=== PATIENT | male | born 1965 | race Hispanic/Latino ===

== ENCOUNTER 2017-08-23 09:52 | Inpatient (IN) | payer SELFPAY ==
[~2017-08-23] VITALS: Ht 172.7 cm; Wt 83.6 kg
[2017-08-23 10:33] LABS: BASOPHILS % (AUTO) 1.3 % (0.0-5.0); EOSINOPHILS % (AUTO) 3.1 % (0.0-8.0); HEMATOCRIT 47.5 % (42-54); LYMPHOCYTES % (AUTO) 30.9 % (21.0-51.0); MEAN CORPUSCULAR HEMOGLOBIN 30.5 pg (27.0-33.0); MEAN CORPUSCULAR HGB CONC 34.5 g/dL (32.0-36.0); MEAN CORPUSCULAR VOLUME 88.4 fL (79-99); MONOCYTES % (AUTO) 10.1 % (3.0-13.0); NEUTROPHILS % (AUTO) 54.6 % (40.0-77.0); PLATELET COUNT (AUTO) 209 K/uL (130-400); RED BLOOD CELL COUNT(AUTO) 5.37 MIL/uL (4.50-6.20); RED CELL DISTRIBUTION WIDTH 13.1 % (11.0-15.5); WHITE BLOOD COUNT (AUTO) 5.7 K/uL (4.8-10.8)
[2017-08-23 10:48] LABS: PARTIAL THROMBOPLASTIN TIME 23.7 SEC (26.3-35.5); PROTHROMBIN TIME 10.5 SEC (9.6-11.6)
[2017-08-23 11:33] LABS: CREATININE 1.2 mg/dL (0.5-1.5); POTASSIUM 4.4 mmol/L (3.5-5.1)
[2017-08-23 11:49] LABS: ALBUMIN 3.5 g/dL (3.5-5.0); BILIRUBIN,TOTAL 0.5 mg/dL (0.2-1.0); CREATINE KINASE MB 1.9 ng/mL (0.5-3.6); TOTAL PROTEIN, SERUM 7.3 g/dL (6.0-8.3)
[2017-08-23] MEDS ORDERED: ASPIRIN 325 MG TABLET ONE (15:19)
[2017-08-23] MEDS ORDERED: HYDRALAZINE HCL 20 MG/ML VIAL ONE (16:05)
[2017-08-23 17:21] VITALS: BP 183/108
[2017-08-23] MEDS: HYDRALAZINE HCL 20 MG/ML VIAL IV SCH ×2 (18:22→23:50)
[2017-08-23 19:54] VITALS: BP 162/89
[2017-08-23] MEDS ORDERED: ONDANSETRON HCL 4 MG/2 ML VIAL IV PRN (21:00)
[2017-08-23] MEDS ORDERED: ACETAMINOPHEN 325 MG TAB PO PRN (21:00)
[2017-08-23] MEDS: LISINOPRIL 10 MG TABLET PO SCH (21:10)
[2017-08-23] MEDS: FAMOTIDINE 20MG TAB 20 MG TAB PO SCH (21:10)
[2017-08-23] MEDS: INSULIN HUMULIN R 100 UNIT/ML 3ML SQ SCH (21:12)
[2017-08-24] VITALS (7 sets, daily range): BP systolic 119–163; BP diastolic 75–95
[2017-08-24 04:36] LABS: HEMATOCRIT 47.3 % (42-54); MEAN CORPUSCULAR HEMOGLOBIN 29.9 pg (27.0-33.0); MEAN CORPUSCULAR HGB CONC 33.8 g/dL (32.0-36.0); MEAN CORPUSCULAR VOLUME 88.4 fL (79-99); PLATELET COUNT (AUTO) 198 K/uL (130-400); RED BLOOD CELL COUNT(AUTO) 5.35 MIL/uL (4.50-6.20); RED CELL DISTRIBUTION WIDTH 13.5 % (11.0-15.5)
[2017-08-24 04:50] LABS: HEMOGLOBIN A1C 8.7 % (4.0-6.0)
[2017-08-24 04:55] LABS: CREATININE 0.9 mg/dL (0.5-1.5); MAGNESIUM 1.9 mg/dL (1.80-2.40); POTASSIUM 3.5 mmol/L (3.5-5.1)
[2017-08-24] MEDS: HYDRALAZINE HCL 20 MG/ML VIAL IV SCH ×4 (05:42→19:42)
[2017-08-24] MEDS: INSULIN HUMULIN R 100 UNIT/ML 3ML SQ SCH ×4 (06:24→21:17)
[2017-08-24] MEDS ORDERED: PANTOPRAZOLE SODIUM 40 MG TABLET.DR PO SCH (09:00)
[2017-08-24] MEDS ORDERED: ASPIRIN 325 MG TABLET PO SCH (09:00)
[2017-08-24] MEDS ORDERED: GADOBENATE DIMEGLUMINE 20 ML IV ONE (10:17)
[2017-08-24] MEDS: HYDROCHLOROTHIAZIDE 25 MG TABLET PO SCH (10:45)
[2017-08-24] MEDS: FAMOTIDINE 20MG TAB 20 MG TAB PO SCH ×2 (10:45→21:15)
[2017-08-24] MEDS: ENOXAPARIN SODIUM 40 MG/0.4 ML SYRINGE SQ SCH (10:47)
[2017-08-24] MEDS: LISINOPRIL 10 MG TABLET PO SCH (10:47)
[2017-08-24] MEDS ORDERED: ASPIRIN 81 MG EC TAB PO SCH (11:12)
[2017-08-24] MEDS ORDERED: CLOPIDOGREL BISULFATE 75 MG TAB PO SCH ×2 (12:30→15:00)
[2017-08-25] MEDS: HYDRALAZINE HCL 20 MG/ML VIAL IV SCH ×3 (00:21→12:12)
[2017-08-25 03:53] VITALS: BP 136/89
[2017-08-25 05:43] VITALS: BP 156/89
[2017-08-25] MEDS: INSULIN HUMULIN R 100 UNIT/ML 3ML SQ SCH ×3 (06:09→16:34)
[2017-08-25 07:00] VITALS: BP 145/83
[2017-08-25] MEDS ORDERED: CLOPIDOGREL BISULFATE 75 MG TAB PO SCH (09:00)
[2017-08-25] MEDS: FAMOTIDINE 20MG TAB 20 MG TAB PO SCH (09:04)
[2017-08-25] MEDS: LISINOPRIL 10 MG TABLET PO SCH (09:04)
[2017-08-25] MEDS: HYDROCHLOROTHIAZIDE 25 MG TABLET PO SCH (09:04)
[2017-08-25] MEDS: ENOXAPARIN SODIUM 40 MG/0.4 ML SYRINGE SQ SCH (09:05)
[2017-08-25 11:00] VITALS: BP 146/89
[2017-08-25] MEDS ORDERED: METF500T6 PO (14:42)
[2017-08-25] MEDS ORDERED: HYDR25TA PO (14:42)
[2017-08-25] MEDS ORDERED: ATOR10 PO (14:42)
[2017-08-25] MEDS ORDERED: LISI10TA7 PO (14:42)
[2017-08-25] MEDS ORDERED: AEC81 PO (14:42)
[2017-08-25] MEDS ORDERED: CLOP75TA14 PO (14:42)
[2017-08-25 16:00] VITALS: BP 156/88
== END 2017-08-25 18:55 | disposition home or self-care (01) | DRG 69 ==
LOC: EDH 09:52 → EDHIP 09:53 → 2AH 17:20
PROVIDERS: ADMIT Family Medicine; ATTEND Family Medicine
DX: G45.9 Transient cerebral ischemic attack, unspecified (principal); E11.51 Type 2 diabetes mellitus with diabetic peripheral angiopathy without gangrene; G93.89 Other specified disorders of brain; I16.1 Hypertensive emergency; E11.65 Type 2 diabetes mellitus with hyperglycemia; E78.5 Hyperlipidemia, unspecified; I10 Essential (primary) hypertension; M54.30 Sciatica, unspecified side; Z79.82 Long term (current) use of aspirin; Z86.73 Personal history of transient ischemic attack (TIA), and cerebral infarction without residual deficits; Z82.3 Family history of stroke; Z82.49 Family history of ischemic heart disease and other diseases of the circulatory system
CPT/HCPCS: 36415; 70450; 70544; 70553; 71045; 80048; 80053; 80061; 82550; 82553; 82948; 83036; 83735; 84484; 85025; 85027; 85610; 85730; 93005; 93306; 93880; A9577; J0360; J1650; J1815

== ENCOUNTER 2018-03-31 07:48 | Observation (INO) | payer OTHER ==
[~2018-03-31] VITALS: Ht 172.7 cm; Wt 78.1 kg
[~2018-03-31 07:48] MED LIST: AEC81 PO; ATOR10 PO; CLOP75TA14 PO; HYDR25TA PO; LISI10TA7 PO; METF-444 PO
[2018-03-31 08:17] LABS: BASOPHILS % (AUTO) 0.9 % (0.0-5.0); EOSINOPHILS % (AUTO) 0.2 % (0.0-8.0); HEMATOCRIT 50.4 % (42-54); LYMPHOCYTES % (AUTO) 14.9 % (21.0-51.0); MEAN CORPUSCULAR HEMOGLOBIN 29.6 pg (27.0-33.0); MEAN CORPUSCULAR VOLUME 89.6 fL (79-99); MONOCYTES % (AUTO) 4.3 % (3.0-13.0); NEUTROPHILS % (AUTO) 79.7 % (40.0-77.0); PLATELET COUNT (AUTO) 229 K/uL (130-400); RED BLOOD CELL COUNT(AUTO) 5.62 MIL/uL (4.50-6.20); RED CELL DISTRIBUTION WIDTH 13.2 % (11.0-15.5); WHITE BLOOD COUNT (AUTO) 9.6 K/uL (4.8-10.8)
[2018-03-31 08:19] LABS: CARBON DIOXIDE 29 mmol/L (21-32); CHLORIDE 100 mmol/L (101-111); GLOMERULAR FILTR. RATE CALC 83 mL/min (>60); GLUCOSE,RANDOM 231 mg/dL (70-105); POTASSIUM 3.8 mmol/L (3.5-5.1); SODIUM SERUM 136 mmol/L (136-145); UREA NITROGEN, BLOOD 12 mg/dL (7-18)
[2018-03-31 08:24] LABS: ALANINE AMINOTRANSFERASE 25 U/L (12-78); ALBUMIN 4.1 g/dL (3.5-5.0); ALCOHOL, BLOOD < 3 mg/dL (0-10); ASPARTATE AMINOTRANSFERASE 18 U/L (10-37); BILIRUBIN,TOTAL 0.4 mg/dL (0.2-1.0); CREATINE KINASE, TOTAL 84 U/L (21-232); TOTAL PROTEIN, SERUM 8.5 g/dL (6.0-8.3)
[2018-03-31] MEDS ORDERED: ONDANSETRON HCL 4 MG/2 ML VIAL IV PRN (09:45)
[2018-03-31] MEDS ORDERED: LACTULOSE 20 GM/30 ML UDCUP PO PRN (09:45)
[2018-03-31] MEDS ORDERED: ACETAMINOPHEN 325 MG TAB PO PRN (09:45)
[2018-03-31 10:28] LABS: HEMOGLOBIN A1C 6.9 % (4.0-6.0)
[2018-03-31 12:00] LABS: APPEARANCE,URINE Clear (CLEAR); BILIRUBIN,URINE Negative (NEGATIVE); COLOR,URINE Yellow (YELLOW); GLUCOSE, URINE (UA) >=1000 mg/dL (NEGATIVE); KETONES,URINE Trace mg/dL (NEGATIVE); LEUKOCYTE ESTERASE ,URINE Negative (NEGATIVE); NITRATE,URINE Negative (NEGATIVE); OCCULT BLOOD,URINE Small (NEGATIVE); PH,URINE 7.5 (5.0-8.0); PROTEIN,URINE POS 1+ (NEGATIVE)
[2018-03-31 12:08] LABS: AMPHET/METH SCREEN,URINE NEGATIVE (NEGATIVE); BARBITURATE SCREEN, URINE NEGATIVE (NEGATIVE); BENZODIAZEPINES SCREEN,URINE NEGATIVE (NEGATIVE); CANNABINOID SCREEN,URINE NEGATIVE (NEGATIVE); COCAINE SCREEN,URINE NEGATIVE (NEGATIVE); OPIATE SCREEN,URINE NEGATIVE (NEGATIVE); PHENCYCLIDINE SCREEN,URINE NEGATIVE (NEGATIVE)
[2018-03-31 12:11] LABS: BACTERIA,URINE Rare /HPF (None Seen); RBC,URINE None Seen /HPF (0-1); SQUAMOUS EPITHELIAL CELL,UR Rare /HPF (0-2); WBC,URINE 0-1 /HPF (0-1)
[2018-03-31] MEDS ORDERED: SODIUM CHLORIDE 0.9% 1000ML 1,000 ML IV ONE (12:36)
[2018-03-31] MEDS: SODIUM CHLORIDE 0.9% 1000ML 1,000 ML IV SCH (19:33)
[2018-03-31] MEDS: ATORVASTATIN CALCIUM 20 MG TABLET PO SCH (21:00)
[2018-03-31] MEDS ORDERED: LOSARTAN 50 MG TABLET ONE (22:18)
[2018-03-31] MEDS ORDERED: HYDROCHLOROTHIAZIDE 25 MG TABLET ONE (22:18)
[2018-03-31] MEDS ORDERED: LORAZEPAM 2 MG/ML 1 ML VIAL IVP PRN (22:30)
[2018-03-31] MEDS ORDERED: CHLORDIAZEPOXIDE HCL 25 MG CAP PO SCH (22:30)
[2018-03-31 23:05] VITALS: BP 170/93
[2018-04-01 00:05] VITALS: BP 162/110
[2018-04-01] MEDS ORDERED: HYDRALAZINE HCL 20 MG/ML VIAL IV PRN (00:15)
[2018-04-01] MEDS: ATORVASTATIN CALCIUM 20 MG TABLET PO SCH (02:12)
[2018-04-01 04:14] VITALS: BP 144/90
[2018-04-01] MEDS: SODIUM CHLORIDE 0.9% 1000ML 1,000 ML IV SCH ×2 (05:59→15:33)
[2018-04-01] MEDS: CHLORDIAZEPOXIDE HCL 25 MG CAP PO SCH ×2 (06:48→14:24)
[2018-04-01 07:54] VITALS: BP 155/94
[2018-04-01] MEDS ORDERED: ENOXAPARIN SODIUM 40 MG/0.4 ML SYRINGE SQ SCH (09:00)
[2018-04-01] MEDS ORDERED: THIAMINE HCL 100 MG TABLET PO SCH (09:00)
[2018-04-01] MEDS ORDERED: CLOPIDOGREL BISULFATE 75 MG TAB PO SCH (09:00)
[2018-04-01] MEDS ORDERED: LABETALOL HCL 100 MG TABLET PO SCH ×2 (09:00→21:00)
[2018-04-01] MEDS ORDERED: PANTOPRAZOLE 40 MG/VIAL IVP SCH (09:00)
[2018-04-01] MEDS ORDERED: LISINOPRIL 10 MG TABLET PO SCH (09:00)
[2018-04-01] MEDS ORDERED: MULTIVITAMIN TABLET PO SCH (09:00)
[2018-04-01] MEDS ORDERED: FOLIC ACID 1 MG TABLET PO SCH (09:00)
[2018-04-01 12:11] VITALS: BP 155/102
[2018-04-01 14:07] VITALS: BP 143/86
[2018-04-01 16:00] VITALS: BP 152/90
[2018-04-01] MEDS ORDERED: LABETALOL HCL 200 MG TABLET ONE (18:30)
[2018-04-01 18:36] LABS: HEMATOCRIT 43.9 % (42-54); MEAN CORPUSCULAR HEMOGLOBIN 30.5 pg (27.0-33.0); MEAN CORPUSCULAR HGB CONC 33.8 g/dL (32.0-36.0); MEAN CORPUSCULAR VOLUME 90.3 fL (79-99); NUCLEATED RED BLOOD CELLS 0.1 % (0.0-0.19); PLATELET COUNT (AUTO) 231 K/uL (130-400); RED BLOOD CELL COUNT(AUTO) 4.87 MIL/uL (4.50-6.20); RED CELL DISTRIBUTION WIDTH 13.5 % (11.0-15.5); WHITE BLOOD COUNT (AUTO) 6.7 K/uL (4.8-10.8)
[2018-04-01] MEDS ORDERED: ATOR20TA65 PO (18:39)
[2018-04-01] MEDS ORDERED: LABE100T5 PO (18:39)
[2018-04-01] MEDS ORDERED: CLOP75TA14 PO (18:39)
[2018-04-01 18:49] LABS: CREATININE 1.1 mg/dL (0.5-1.5); POTASSIUM 3.7 mmol/L (3.5-5.1)
[2018-04-01 18:53] LABS: ALBUMIN 3.2 g/dL (3.5-5.0); BILIRUBIN,TOTAL 0.4 mg/dL (0.2-1.0)
[2018-04-01 19:42] LABS: B-TYPE NATRIURETIC PEPTIDE 32 pg/mL (0-100)
== END 2018-04-01 19:34 | disposition home or self-care (01) ==
LOC: EDH 07:48 → EDHIP 07:49 → 2DH 23:03
PROVIDERS: ADMIT Internal Medicine; ATTEND Internal Medicine
DX: I63.9 Cerebral infarction, unspecified (principal); I16.1 Hypertensive emergency; I10 Essential (primary) hypertension; E11.9 Type 2 diabetes mellitus without complications; I25.10 Atherosclerotic heart disease of native coronary artery without angina pectoris; E78.2 Mixed hyperlipidemia; F10.20 Alcohol dependence, uncomplicated; Z91.14 Patient's other noncompliance with medication regimen; Z91.19 Patient's noncompliance with other medical treatment and regimen
CPT/HCPCS: 36415 ×2; 70450; 70551; 71045; 74230; 80053 ×2; 80305; 81001; 82550; 82948; 83036; 83880; 84484; 85025; 85027; 92610; 92611; 93005; 96361; 96372; 96374; 96375; 97116; 97161; 99285; A4218; C9113; G0378 ×36; G0480; G8978; G8979; G8980; G8981; G8982; G8983; J0360; J1650; J7030 ×2

== ENCOUNTER 2018-12-29 12:29 | Inpatient (IN) | payer OTHER ==
[~2018-12-29] VITALS: Ht 172.7 cm; Wt 61.2 kg
[~2018-12-29 12:29] MED LIST changes: -ATOR10 PO; +ATOR20TA65 PO; -HYDR25TA PO; +LABE100T5 PO; -LISI10TA7 PO; -METF-444 PO
[2018-12-29] MEDS ORDERED: SODIUM CHLORIDE 0.9% 1000ML 1,000 ML IV ONE ×3 (13:04→18:26)
[2018-12-29 13:15] LABS: EOSINOPHILS % (AUTO) 1.1 % (0.0-8.0); HEMATOCRIT 44.6 % (42-54); LYMPHOCYTES % (AUTO) 20.7 % (21.0-51.0); MEAN CORPUSCULAR HEMOGLOBIN 30.1 pg (27.0-33.0); MEAN CORPUSCULAR HGB CONC 33.8 g/dL (32.0-36.0); MEAN CORPUSCULAR VOLUME 89.2 fL (79-99); MONOCYTES % (AUTO) 6.5 % (3.0-13.0); NEUTROPHILS % (AUTO) 70.7 % (40.0-77.0); PLATELET COUNT (AUTO) 291 K/uL (130-400); RED CELL DISTRIBUTION WIDTH 13.1 % (11.0-15.5); WHITE BLOOD COUNT (AUTO) 9.5 K/uL (4.8-10.8)
[2018-12-29 13:25] LABS: CREATININE 2.6 mg/dL (0.5-1.5); POTASSIUM 4.6 mmol/L (3.5-5.1)
[2018-12-29 13:31] LABS: ALBUMIN 4.3 g/dL (3.5-5.0); BILIRUBIN,TOTAL 0.7 mg/dL (0.2-1.0); TOTAL PROTEIN, SERUM 8.3 g/dL (6.0-8.3)
[2018-12-29] MEDS ORDERED: ACETAMINOPHEN 325 MG TAB PO PRN ×2 (14:45)
[2018-12-29] MEDS ORDERED: HYDRALAZINE HCL 20 MG/ML VIAL IV PRN (14:45)
[2018-12-29] MEDS ORDERED: ONDANSETRON HCL 4 MG/2 ML VIAL IV PRN (14:45)
[2018-12-29 15:23] LABS: HEMOGLOBIN A1C 8.1 % (4.0-6.0)
[2018-12-29] MEDS ORDERED: ONDANSETRON HCL 4 MG/2 ML VIAL ONE (16:56)
[2018-12-29 18:12] LABS: APPEARANCE,URINE Clear (CLEAR); BILIRUBIN,URINE Negative (NEGATIVE); COLOR,URINE Yellow (YELLOW); GLUCOSE, URINE (UA) >=1000 mg/dL (NEGATIVE); KETONES,URINE 15 mg/dL (NEGATIVE); LEUKOCYTE ESTERASE ,URINE Negative (NEGATIVE); NITRATE,URINE Negative (NEGATIVE); OCCULT BLOOD,URINE Trace (NEGATIVE); PROTEIN,URINE POS 1+ mg/dL (NEGATIVE)
[2018-12-29 18:19] LABS: RBC,URINE 0-1 /HPF (0-1); SQUAMOUS EPITHELIAL CELL,UR Few /HPF (0-2)
[2018-12-29 18:20] LABS: AMPHET/METH SCREEN,URINE NEGATIVE (NEGATIVE); BACTERIA,URINE Rare /HPF (None Seen); BARBITURATE SCREEN, URINE NEGATIVE (NEGATIVE); BENZODIAZEPINES SCREEN,URINE NEGATIVE (NEGATIVE); CANNABINOID SCREEN,URINE NEGATIVE (NEGATIVE); COCAINE SCREEN,URINE NEGATIVE (NEGATIVE); OPIATE SCREEN,URINE NEGATIVE (NEGATIVE); PHENCYCLIDINE SCREEN,URINE NEGATIVE (NEGATIVE); SPERM,URINE Few /HPF (None Seen)
[2018-12-29 19:40] VITALS: BP 149/80
[2018-12-29] MEDS: SODIUM CHLORIDE 0.9% 1000ML 1,000 ML IV SCH (20:45)
[2018-12-29 23:38] VITALS: BP 135/73
[2018-12-30] VITALS (7 sets, daily range): BP systolic 148–180; BP diastolic 79–93
[2018-12-30] MEDS: SODIUM CHLORIDE 0.9% 1000ML 1,000 ML IV SCH (03:57)
--- NOTE | 2018-12-30 11:25 | NUR ---
DCP CM met with pt discussed dc plans. Pt is independent prior to admission, lives at home with spouse. Denies any equipments/services. Pt feels safe to go back home, still drives, spouse able to assist with transportation and needs as necessary. DC plan to home once stable. CM to cont to follow up. Addendum: 12/30/18 at 1127 by LIYAH COLE LVN CM Amended: Links added.
[2018-12-30 12:55] LABS: BASOPHILS % (AUTO) 0.6 % (0.0-5.0); EOSINOPHILS % (AUTO) 2.6 % (0.0-8.0); HEMATOCRIT 38.4 % (42-54); MEAN CORPUSCULAR HEMOGLOBIN 30.6 pg (27.0-33.0); MONOCYTES % (AUTO) 7.8 % (3.0-13.0); PLATELET COUNT (AUTO) 193 K/uL (130-400); RED BLOOD CELL COUNT(AUTO) 4.27 MIL/uL (4.50-6.20); RED CELL DISTRIBUTION WIDTH 13.2 % (11.0-15.5); WHITE BLOOD COUNT (AUTO) 5.5 K/uL (4.8-10.8)
[2018-12-30 13:07] LABS: CREATININE 1.1 mg/dL (0.5-1.5); POTASSIUM 4.2 mmol/L (3.5-5.1)
[2018-12-30] MEDS: ENOXAPARIN SODIUM 40 MG/0.4 ML SYRINGE SQ SCH (13:45)
[2018-12-30] MEDS: FAMOTIDINE/PF 20 MG/2 ML VIAL IV SCH (13:45)
[2018-12-30] MEDS: CLOPIDOGREL BISULFATE 75 MG TAB PO SCH (13:45)
[2018-12-30] MEDS ORDERED: LABE100T5 PO (19:46)
[2018-12-30] MEDS ORDERED: ASPI-555 PO (19:46)
[2018-12-30] MEDS ORDERED: METF-446 PO (19:46)
[2018-12-30] MEDS ORDERED: AMLO10TA7 PO (19:46)
[2018-12-30] MEDS ORDERED: LISI40TA4 PO (19:46)
[2018-12-30] MEDS ORDERED: ATOR40TA69 PO (19:46)
[2018-12-30] MEDS ORDERED: THIA250T9 PO (19:46)
[2018-12-31 03:40] VITALS: BP 162/86
[2018-12-31 04:17] LABS: EOSINOPHILS % (AUTO) 2.4 % (0.0-8.0); HEMATOCRIT 39.3 % (42-54); LYMPHOCYTES % (AUTO) 29.8 % (21.0-51.0); MEAN CORPUSCULAR HEMOGLOBIN 30.5 pg (27.0-33.0); MEAN CORPUSCULAR HGB CONC 34.2 g/dL (32.0-36.0); MEAN CORPUSCULAR VOLUME 89.2 fL (79-99); MONOCYTES % (AUTO) 9.8 % (3.0-13.0); PLATELET COUNT (AUTO) 204 K/uL (130-400); RED BLOOD CELL COUNT(AUTO) 4.41 MIL/uL (4.50-6.20); RED CELL DISTRIBUTION WIDTH 13.3 % (11.0-15.5); WHITE BLOOD COUNT (AUTO) 5.8 K/uL (4.8-10.8)
[2018-12-31 04:46] LABS: CREATININE 0.9 mg/dL (0.5-1.5); POTASSIUM 3.8 mmol/L (3.5-5.1)
[2018-12-31 07:59] VITALS: BP 152/96
[2018-12-31] MEDS: METFORMIN HCL 500 MG TABLET PO SCH ×2 (08:00→16:43)
[2018-12-31] MEDS: ASPIRIN 81MG TAB.CHEW PO SCH (08:55)
[2018-12-31] MEDS: LISINOPRIL 40 MG TABLET PO SCH (08:55)
[2018-12-31] MEDS: AMLODIPINE BESYLATE 5 MG TAB PO SCH (08:55)
[2018-12-31] MEDS: LABETALOL HCL 100 MG TABLET PO SCH ×2 (08:55→19:52)
[2018-12-31] MEDS ORDERED: FAMOTIDINE 20MG TAB 20 MG TAB ONE (08:57)
[2018-12-31] MEDS: THIAMINE HCL 100 MG TABLET PO SCH (09:00)
[2018-12-31] MEDS: CLOPIDOGREL BISULFATE 75 MG TAB PO SCH (09:00)
[2018-12-31] MEDS: FAMOTIDINE/PF 20 MG/2 ML VIAL IV SCH (09:00)
[2018-12-31] MEDS: ENOXAPARIN SODIUM 40 MG/0.4 ML SYRINGE SQ SCH (09:01)
[2018-12-31 10:53] VITALS: BP 138/80
--- NOTE | 2018-12-31 14:45 | NUR ---
2d echo complete, pending cardiology to read. Negative bubble study per verbal report from certified medication technician.
[2018-12-31 15:37] VITALS: BP 144/80
[2018-12-31 19:42] VITALS: BP 152/84
[2018-12-31] MEDS ORDERED: ATORVASTATIN CALCIUM 40 MG TABLET PO SCH (21:00)
[2019-01-01] VITALS: BP 139/93
[2019-01-01 04:00] VITALS: BP 134/85
[2019-01-01 07:42] VITALS: BP 140/85
[2019-01-01] MEDS ORDERED: FAMOTIDINE 20MG TAB 20 MG TAB ONE (08:56)
[2019-01-01] MEDS: AMLODIPINE BESYLATE 5 MG TAB PO SCH (09:00)
[2019-01-01] MEDS: ASPIRIN 81MG TAB.CHEW PO SCH (09:00)
[2019-01-01] MEDS: METFORMIN HCL 500 MG TABLET PO SCH (09:00)
[2019-01-01] MEDS: FAMOTIDINE/PF 20 MG/2 ML VIAL IV SCH (09:00)
[2019-01-01] MEDS: CLOPIDOGREL BISULFATE 75 MG TAB PO SCH (09:00)
[2019-01-01] MEDS: THIAMINE HCL 100 MG TABLET PO SCH (09:01)
[2019-01-01] MEDS: LISINOPRIL 40 MG TABLET PO SCH (09:01)
[2019-01-01] MEDS: LABETALOL HCL 100 MG TABLET PO SCH (09:01)
[2019-01-01] MEDS: ENOXAPARIN SODIUM 40 MG/0.4 ML SYRINGE SQ SCH (09:02)
[2019-01-01 10:53] VITALS: BP 124/70
[2019-01-01] MEDS ORDERED: CLOP75TA14 PO (11:19)
[2019-01-01] MEDS ORDERED: FAMO20TA8 PO (11:22)
--- NOTE | 2019-01-01 13:39 | NUR ---
Discharge instructions provided in the room with emphasis on dx, dehydration prevention, stroke prevention, s/s to monitor for, when to seek emergency care and when to dial 911. Educated pt on importance of blood sugar and blood pressure control for stroke prevention. Instructed pt to monitor and record blood pressure regularly, and report to MD's during follow up visits. Pt is to follow up with PCP at [facility] in 7-10 days, [address] Dr. Nixon in 6 weeks. Unable to schedule appts prior to discharge as offices are closed for the weekend; pt and understand that they need to call the schedule appts. Written rx for Plavix and Pepcid given to pt. Discussed route, frequency, and duration of treatment, as well as side effects and adverse effects. Emphasis om importance of taking medication exactly as prescribed. PIV removed, tip intact. Dressed with sterile 2x2 and band aid after hemostasis. Pt wheeled to front lobby by [facility] staff for transport home via private car. Pt in stable condition. Accompanied by and other family member.
[2019-01-01] MEDS ORDERED: FAMOTIDINE 20MG TAB 20 MG TAB PO SCH (21:00)
== END 2019-01-01 13:39 | disposition home or self-care (01) | DRG 66 ==
LOC: EDH 12:29 → OBSVTOIN 12:30 → EDHIP 12:30 → 4AH 19:05
PROVIDERS: ADMIT Internal Medicine; ATTEND Internal Medicine
DX: I63.9 Cerebral infarction, unspecified (principal); E11.9 Type 2 diabetes mellitus without complications; E78.2 Mixed hyperlipidemia; E86.0 Dehydration; I10 Essential (primary) hypertension; I16.0 Hypertensive urgency; I95.9 Hypotension, unspecified; Z79.82 Long term (current) use of aspirin; Z91.14 Patient's other noncompliance with medication regimen; Z91.19 Patient's noncompliance with other medical treatment and regimen; Z83.3 Family history of diabetes mellitus; Z82.49 Family history of ischemic heart disease and other diseases of the circulatory system
CPT/HCPCS: 36415; 70450; 70551; 71045; 80048; 80053; 80305; 81001; 82140; 82550; 82948; 83036; 84443; 84484; 85025; 92610; 93005; 93306; 93880; G0378; J0360; J1650; J2405; J3490; J7030

== ENCOUNTER 2022-10-26 17:04 | Inpatient (IN) | payer OTHER ==
[~2022-10-26] VITALS: Ht 170.2 cm; Wt 62.1 kg
[~2022-10-26 17:04] MED LIST changes: -AEC81 PO; +AMLO-258 PO; +ASPI-556 PO; -ATOR20TA65 PO; +ATOR40TA69 PO; +CLOP-31 PO; -CLOP75TA14 PO; +FAMO20TA8 PO; -LABE100T5 PO; +LABE100T7 PO; +LISI40TA9 PO; +METF-446 PO; +THIA250T9 PO
[2022-10-26 17:55] LABS: BASOPHILS % (AUTO) 0.4 % (0.0-5.0); HEMATOCRIT 43.7 % (42-54); LYMPHOCYTES % (AUTO) 3.3 % (21.0-51.0); MEAN CORPUSCULAR HEMOGLOBIN 28.9 pg (27.0-33.0); MEAN CORPUSCULAR VOLUME 87.6 fL (79-99); MONOCYTES % (AUTO) 5.8 % (3.0-13.0); NEUTROPHILS % (AUTO) 88.8 % (40.0-77.0); PLATELET COUNT (AUTO) 338 K/uL (130-400); RED BLOOD CELL COUNT(AUTO) 4.99 MIL/uL (4.50-6.20); RED CELL DISTRIBUTION WIDTH 13.4 % (11.0-15.5)
[2022-10-26 17:58] LABS: WHITE BLOOD COUNT (AUTO) 35.4 K/uL (4.8-10.8)
[2022-10-26 18:17] LABS: ALBUMIN 1.9 g/dL (3.5-5.0); CREATININE 1.4 mg/dL (0.5-1.5); POTASSIUM 3.8 mmol/L (3.5-5.1); TOTAL PROTEIN, SERUM 8.1 g/dL (6.0-8.3)
[2022-10-26] MEDS ORDERED: ZOSYN 3.375GM +NS 50ML IVPB ONE (18:30)
[2022-10-26] MEDS ORDERED: ACETAMINOPHEN 500 MG TABLET PO ONE (18:30)
[2022-10-26] MEDS ORDERED: 0.9%NACL 1000ML 2,000 ML IV ONE (18:30)
[2022-10-26 18:36] LABS: INR 1.58 (0.85-1.15); PROTHROMBIN TIME 16.8 SEC (9.6-11.6)
[2022-10-26 18:37] LABS: PARTIAL THROMBOPLASTIN TIME 29.9 SEC (26.3-35.5)
[2022-10-26 19:13] LABS: BAND NEUTROPHILS % (MANUAL) 21 % (0-2); LYMPHOCYTES % (MANUAL) 2 % (22-44); MONOCYTES % (MANUAL) 3 % (2-9); SEGMENTED NEUTROPHILS % 74 % (40-70)
[2022-10-26 19:14] LABS: MAN.DIFF COMMENT-IMPRESSION MANUAL DIFFERENTIAL
[2022-10-26] MEDS ORDERED: ACETAMINOPHEN 325 MG TAB PO PRN ×2 (21:00)
[2022-10-26] MEDS ORDERED: MORPHINE 2 MG SYG IV PRN (21:00)
[2022-10-26] MEDS ORDERED: HYDROCODONE/ACETAMINOPHEN 5/325 MG TAB PO PRN ×2 (21:00)
[2022-10-26] MEDS ORDERED: 0.9%NACL 1000ML 1,000 ML IV SCH (21:00)
[2022-10-26] MEDS ORDERED: FAMOTIDINE 20MG VIAL IV SCH (21:00)
[2022-10-26] MEDS ORDERED: ZOSYN 3.375GM+NS 50ML 50 ML IVPB SCH (21:00)
[2022-10-26] MEDS ORDERED: ONDANSETRON 4MG INJ IV PRN (21:00)
[2022-10-26] MEDS ORDERED: TAMSULOSIN HCL 0.4 MG CAP.ER.24H PO ONE (21:30)
[2022-10-26] MEDS ORDERED: VANCOMYCIN 1G VIAL IVPB ONE (22:00)
[2022-10-26] MEDS: VANCOMYCIN 1G/250ML KIT 250 ML IV ONE ×2 (22:15→23:29)
[2022-10-26] MEDS: CLINDAMYCIN IVPB 900MG/50ML 50 ML IV SCH ×2 (22:17→23:28)
[2022-10-27] VITALS (21 sets, daily range): BP systolic 97–126; BP diastolic 65–78
[2022-10-27] MEDS: NEOMY SULF/BACITRA/POLYMYXIN B 1 EACH PACKET TP SCH
[2022-10-27] MEDS: PHARMACY COMMUNICATION MISC SCH
[2022-10-27 00:30] LABS: APPEARANCE,URINE TURBID (CLEAR); BILIRUBIN,URINE NEGATIVE (NEGATIVE); COLOR,URINE YELLOW (YELLOW); GLUCOSE, URINE (UA) >=1000 mg/dL (NEGATIVE); KETONES,URINE 20 mg/dL (NEGATIVE); LEUKOCYTE ESTERASE ,URINE 250 Leu/uL (NEGATIVE); NITRATE,URINE NEGATIVE (NEGATIVE); OCCULT BLOOD,URINE SMALL (NEGATIVE); PROTEIN,URINE 50 mg/dL (NEGATIVE)
[2022-10-27 00:34] LABS: BACTERIA,URINE MOD /HPF (None Seen); MUCUS,URINE RARE LPF (None Seen); RBC,URINE TNTC /HPF (0-1); SQUAMOUS EPITHELIAL CELL,UR RARE /HPF (0-2); WBC,URINE 26-50 /HPF (0-1); YEAST,URINE BUDDING MANY /HPF (None Seen)
[2022-10-27] MEDS: ZOSYN 3.375GM+NS 50ML 50 ML IVPB SCH ×3 (01:00→21:20)
[2022-10-27] MEDS ORDERED: ZOSYN 3.375GM +NS 50ML IVPB SCH (07:30)
[2022-10-27] MEDS ORDERED: VANCOMYCIN PROTOCOL PER PHARMACY IV SCH (07:30)
[2022-10-27] MEDS ORDERED: HYDROCODONE/ACETAMINOPHEN 5/325 MG TAB PO PRN (07:30)
[2022-10-27] MEDS ORDERED: MORPHINE 2 MG SYG IVP PRN (07:30)
[2022-10-27] MEDS ORDERED: ACETAMINOPHEN 325 MG TAB PO PRN (07:30)
[2022-10-27 07:47] LABS: BASOPHILS % (AUTO) 0.3 % (0.0-5.0); LYMPHOCYTES % (AUTO) 5.5 % (21.0-51.0); MEAN CORPUSCULAR HEMOGLOBIN 28.3 pg (27.0-33.0); MEAN CORPUSCULAR HGB CONC 32.6 g/dL (32.0-36.0); MEAN CORPUSCULAR VOLUME 87.1 fL (79-99); MONOCYTES % (AUTO) 4.9 % (3.0-13.0); NEUTROPHILS % (AUTO) 88.2 % (40.0-77.0); PLATELET COUNT (AUTO) 288 K/uL (130-400); RED BLOOD CELL COUNT(AUTO) 4.48 MIL/uL (4.50-6.20); RED CELL DISTRIBUTION WIDTH 13.5 % (11.0-15.5); WHITE BLOOD COUNT (AUTO) 23.7 K/uL (4.8-10.8)
[2022-10-27 08:18] LABS: ALBUMIN 1.5 g/dL (3.5-5.0); CREATININE 0.8 mg/dL (0.5-1.5); MAGNESIUM 1.8 mg/dL (1.80-2.40); POTASSIUM 3.4 mmol/L (3.5-5.1); TOTAL PROTEIN, SERUM 6.4 g/dL (6.0-8.3)
[2022-10-27] MEDS: FAMOTIDINE 20MG VIAL IV SCH (08:49)
[2022-10-27] MEDS ORDERED: TAMSULOSIN HCL 0.4 MG CAP.ER.24H PO SCH (09:00)
[2022-10-27] MEDS ORDERED: ENOXAPARIN SODIUM 30 MG/0.3 ML SQ SCH (09:00)
[2022-10-27] MEDS: ENOXAPARIN SODIUM 40 MG/0.4 ML SYRINGE SQ SCH (09:00)
[2022-10-27] MEDS ORDERED: POTASSIUM CHLORIDE 10% ELIXIR 20 MEQ/15 ML UDCUP PO PRN (09:30)
[2022-10-27] MEDS ORDERED: POTASSIUM CHLORIDE 20MEQ/100ML 100 ML IV PRN (09:30)
[2022-10-27] MEDS: 0.9%NACL 1000ML 1,000 ML IV SCH ×2 (10:33→22:50)
[2022-10-27] MEDS ORDERED: VANCOMYCIN 1.25 GM/250 ML BAG 250 ML IV SCH (13:00)
[2022-10-27] MEDS ORDERED: ZOSYN 3.375GM+NS 50ML 50 ML IVPB SCH (13:00)
[2022-10-27] MEDS ORDERED: COMPOUND IV REFRIGERATED 1 EACH IVSOLN MISC PRN (14:30)
[2022-10-27] MEDS: CLINDAMYCIN IVPB 900MG/50ML 50 ML IV SCH ×2 (15:31→21:19)
[2022-10-27] MEDS ORDERED: VANCOMYCIN 1G VIAL IVPB ONE (16:30)
[2022-10-27] MEDS ORDERED: LIDOCAINE PF 100MG/5ML (2%) SYRINGE 5ML ONE (16:42)
[2022-10-27] MEDS ORDERED: ONDANSETRON 4MG INJ ONE (16:42)
[2022-10-27] MEDS ORDERED: MIDAZOLAM HCL 1 MG/ML 2ML VIAL ONE (16:42)
[2022-10-27] MEDS ORDERED: SUCCINYLCHOLINE CHLORIDE 20 MG/ML 10 ML VIAL ONE (16:42)
[2022-10-27] MEDS ORDERED: DEXAMETHASONE SOD PHOSPHATE 10MG/ML 1ML VIAL ONE (16:42)
[2022-10-27] MEDS ORDERED: NEOSTIGMINE 5MG/5ML SYR IV ONE (16:43)
[2022-10-27] MEDS ORDERED: GLYCOPYRROLATE 1 MG/5 ML SYRINGE ONE (16:43)
[2022-10-27] MEDS ORDERED: PROPOFOL 10 MG/ML 20ML VIAL IV ONE (16:43)
[2022-10-27] MEDS ORDERED: ROCURONIUM 10MG/1ML SYR 10 MG/ML ML ONE (16:43)
[2022-10-27] MEDS ORDERED: FENTANYL CITRATE PF 50 MCG/1 ML 2ML VIAL ONE ×2 (16:45→17:55)
[2022-10-27] MEDS: VANCOMYCIN 1G/250ML KIT 250 ML IV SCH (16:58)
[2022-10-27] MEDS ORDERED: ZOSYN 3.375GM +NS 50ML IVPB ONE (17:30)
[2022-10-27] MEDS ORDERED: CEFAZOLIN SODIUM 1 GM VIAL IRRIG ONE (18:21)
[2022-10-27] MEDS ORDERED: CEFAZOLIN SODIUM 1 GM VIAL ONE (18:26)
[2022-10-27] MEDS ORDERED: SEMA14TA2 PO (18:44)
[2022-10-27] MEDS ORDERED: TAMS-1 PO (18:44)
[2022-10-27] MEDS ORDERED: DAPA5TAB PO (18:44)
[2022-10-27] MEDS ORDERED: EZET10TA48 PO (18:44)
[2022-10-27] MEDS ORDERED: MEPERIDINE-PF 75 MG/ML SYG IM PRN (21:00)
[2022-10-27] MEDS ORDERED: ACETAMINOPHEN WITH CODEINE 1 TAB TAB PO PRN (21:00)
[2022-10-27] MEDS ORDERED: VANCOMYCIN 1G VIAL IVPB SCH (21:00)
[2022-10-27] MEDS: ATORVASTATIN 40 MG TABLET PO SCH (21:19)
[2022-10-27] MEDS: 0.9%NACL 50ML IV SCH (21:20)
[2022-10-27] MEDS: LACTATED RINGERS 1000ML 1,000 ML IV SCH (21:40)
[2022-10-27] MEDS ORDERED: VANCOMYCIN 1.5 GM/250 ML BAG 250 ML IV SCH (22:00)
[2022-10-28 00:24] VITALS: BP 99/65
[2022-10-28 03:24] VITALS: BP 95/61
[2022-10-28 03:48] LABS: BASOPHILS % (AUTO) 0.3 % (0.0-5.0); EOSINOPHILS % (AUTO) 0.3 % (0.0-8.0); HEMATOCRIT 39.7 % (42-54); LYMPHOCYTES % (AUTO) 2.5 % (21.0-51.0); MEAN CORPUSCULAR HEMOGLOBIN 28.9 pg (27.0-33.0); MEAN CORPUSCULAR HGB CONC 32.2 g/dL (32.0-36.0); MEAN CORPUSCULAR VOLUME 89.6 fL (79-99); MONOCYTES % (AUTO) 1.8 % (3.0-13.0); PLATELET COUNT (AUTO) 286 K/uL (130-400); RED BLOOD CELL COUNT(AUTO) 4.43 MIL/uL (4.50-6.20); RED CELL DISTRIBUTION WIDTH 13.4 % (11.0-15.5); WHITE BLOOD COUNT (AUTO) 23.8 K/uL (4.8-10.8)
[2022-10-28] MEDS: VANCOMYCIN 1G/250ML KIT 250 ML IV SCH ×2 (03:59→17:32)
[2022-10-28 04:00] LABS: CREATININE 0.7 mg/dL (0.5-1.5); MAGNESIUM 1.9 mg/dL (1.80-2.40); POTASSIUM 3.8 mmol/L (3.5-5.1); TOTAL PROTEIN, SERUM 5.7 g/dL (6.0-8.3)
[2022-10-28] MEDS: ZOSYN 3.375GM+NS 50ML 50 ML IVPB SCH ×3 (04:00→21:11)
[2022-10-28] MEDS: 0.9%NACL 50ML IV SCH ×2 (04:01→12:26)
[2022-10-28] MEDS: CLINDAMYCIN IVPB 900MG/50ML 50 ML IV SCH ×3 (04:39→21:12)
[2022-10-28] MEDS: LACTATED RINGERS 1000ML 1,000 ML IV SCH ×2 (05:31→17:30)
[2022-10-28] MEDS: NEOMY SULF/BACITRA/POLYMYXIN B 1 EACH PACKET TP SCH ×3 (06:46→21:12)
[2022-10-28 07:49] VITALS: BP 95/66
[2022-10-28] MEDS: ENOXAPARIN SODIUM 40 MG/0.4 ML SYRINGE SQ SCH (09:10)
[2022-10-28] MEDS: FAMOTIDINE 20MG VIAL IV SCH (09:11)
[2022-10-28] MEDS: ASPIRIN 81 MG EC TAB PO SCH (09:11)
[2022-10-28] MEDS: AMLODIPINE 5 MG TAB PO SCH (09:11)
[2022-10-28] MEDS: MAGNESIUM 2GM PREMIX 50ML 50 ML IV PRN (09:12)
[2022-10-28] MEDS: PHARMACY COMMUNICATION MISC SCH ×2 (09:12→21:13)
[2022-10-28] MEDS: KCL 20 MEQ ERTAB PO PRN (09:12)
[2022-10-28] MEDS ORDERED: GLUCAGON 1MG KIT 1 MG ML IM PRN (10:00)
[2022-10-28] MEDS ORDERED: DEXTROSE 50%-WATER 50 ML DISP.SYRIN IV PRN (10:00)
[2022-10-28 11:38] VITALS: BP 98/65
[2022-10-28] MEDS: ONDANSETRON 4MG INJ IVP PRN (15:04)
[2022-10-28 16:16] VITALS: BP 94/63
[2022-10-28 19:18] VITALS: BP 100/67
[2022-10-28] MEDS: ATORVASTATIN 40 MG TABLET PO SCH (21:11)
[2022-10-28] MEDS: INSULIN HUMULIN R 100 UNIT/ML 3ML SQ SCH (21:59)
[2022-10-29] VITALS (7 sets, daily range): BP systolic 99–121; BP diastolic 57–81
[2022-10-29] MEDS: LACTATED RINGERS 1000ML 1,000 ML IV SCH ×2 (03:33→13:09)
[2022-10-29 04:02] LABS: BASOPHILS % (AUTO) 0.3 % (0.0-5.0); EOSINOPHILS % (AUTO) 0.2 % (0.0-8.0); HEMATOCRIT 37.4 % (42-54); LYMPHOCYTES % (AUTO) 14.8 % (21.0-51.0); MEAN CORPUSCULAR HGB CONC 31.6 g/dL (32.0-36.0); MEAN CORPUSCULAR VOLUME 88.6 fL (79-99); MONOCYTES % (AUTO) 5.6 % (3.0-13.0); NEUTROPHILS % (AUTO) 77.7 % (40.0-77.0); PLATELET COUNT (AUTO) 344 K/uL (130-400); RED BLOOD CELL COUNT(AUTO) 4.22 MIL/uL (4.50-6.20); RED CELL DISTRIBUTION WIDTH 13.6 % (11.0-15.5); WHITE BLOOD COUNT (AUTO) 13.2 K/uL (4.8-10.8)
[2022-10-29 04:29] LABS: ALBUMIN 1.1 g/dL (3.5-5.0); CREATININE 0.7 mg/dL (0.5-1.5); MAGNESIUM 2.1 mg/dL (1.80-2.40); POTASSIUM 3.5 mmol/L (3.5-5.1); TOTAL PROTEIN, SERUM 5.4 g/dL (6.0-8.3)
[2022-10-29] MEDS: ZOSYN 3.375GM+NS 50ML 50 ML IVPB SCH ×3 (05:15→19:57)
[2022-10-29] MEDS: CLINDAMYCIN IVPB 900MG/50ML 50 ML IV SCH ×3 (06:41→21:30)
[2022-10-29] MEDS: VANCOMYCIN 1G/250ML KIT 250 ML IV SCH ×2 (06:42→17:01)
[2022-10-29] MEDS: INSULIN HUMULIN R 100 UNIT/ML 3ML SQ SCH ×4 (07:44→20:13)
[2022-10-29] MEDS: PHARMACY COMMUNICATION MISC SCH ×2 (09:00→20:28)
[2022-10-29] MEDS: ENOXAPARIN SODIUM 40 MG/0.4 ML SYRINGE SQ SCH (09:14)
[2022-10-29] MEDS: ASPIRIN 81 MG EC TAB PO SCH (09:14)
[2022-10-29] MEDS: FAMOTIDINE 20MG VIAL IV SCH (09:14)
[2022-10-29] MEDS: KCL 20 MEQ ERTAB PO PRN ×2 (09:14→11:46)
[2022-10-29] MEDS: AMLODIPINE 5 MG TAB PO SCH (09:14)
[2022-10-29] MEDS: NEOMY SULF/BACITRA/POLYMYXIN B 1 EACH PACKET TP SCH ×2 (09:15→19:58)
[2022-10-29] MEDS: ATORVASTATIN 40 MG TABLET PO SCH (19:57)
[2022-10-30] MEDS: LACTATED RINGERS 1000ML 1,000 ML IV SCH ×3 (00:12→19:34)
[2022-10-30 03:45] VITALS: BP 129/80
[2022-10-30] MEDS: ZOSYN 3.375GM+NS 50ML 50 ML IVPB SCH ×3 (04:36→19:34)
[2022-10-30] MEDS: CLINDAMYCIN IVPB 900MG/50ML 50 ML IV SCH ×3 (05:22→20:57)
[2022-10-30] MEDS: INSULIN HUMULIN R 100 UNIT/ML 3ML SQ SCH ×4 (05:50→20:42)
[2022-10-30 05:52] LABS: BASOPHILS % (AUTO) 0.6 % (0.0-5.0); EOSINOPHILS % (AUTO) 0.8 % (0.0-8.0); HEMATOCRIT 38.7 % (42-54); LYMPHOCYTES % (AUTO) 21.2 % (21.0-51.0); MEAN CORPUSCULAR HEMOGLOBIN 28.5 pg (27.0-33.0); MEAN CORPUSCULAR HGB CONC 32.3 g/dL (32.0-36.0); MEAN CORPUSCULAR VOLUME 88.4 fL (79-99); MONOCYTES % (AUTO) 6.8 % (3.0-13.0); NEUTROPHILS % (AUTO) 68.8 % (40.0-77.0); PLATELET COUNT (AUTO) 321 K/uL (130-400); RED BLOOD CELL COUNT(AUTO) 4.38 MIL/uL (4.50-6.20); RED CELL DISTRIBUTION WIDTH 13.5 % (11.0-15.5); WHITE BLOOD COUNT (AUTO) 9.5 K/uL (4.8-10.8)
[2022-10-30 06:24] LABS: ALBUMIN 1.1 g/dL (3.5-5.0); CREATININE 0.6 mg/dL (0.5-1.5); MAGNESIUM 1.8 mg/dL (1.80-2.40); POTASSIUM 3.8 mmol/L (3.5-5.1); TOTAL PROTEIN, SERUM 5.3 g/dL (6.0-8.3)
[2022-10-30] MEDS: KCL 20 MEQ ERTAB PO PRN ×2 (06:34→10:34)
[2022-10-30] MEDS: VANCOMYCIN 1G/250ML KIT 250 ML IV SCH ×2 (06:35→18:15)
[2022-10-30 07:32] VITALS: BP 119/79
[2022-10-30] MEDS: NEOMY SULF/BACITRA/POLYMYXIN B 1 EACH PACKET TP SCH ×2 (08:43→19:16)
[2022-10-30] MEDS: ASPIRIN 81 MG EC TAB PO SCH (08:44)
[2022-10-30] MEDS: FAMOTIDINE 20MG VIAL IV SCH (08:44)
[2022-10-30] MEDS: ENOXAPARIN SODIUM 40 MG/0.4 ML SYRINGE SQ SCH (08:44)
[2022-10-30] MEDS: AMLODIPINE 5 MG TAB PO SCH (08:45)
[2022-10-30 11:13] VITALS: BP 109/83
[2022-10-30 17:03] VITALS: BP 127/84
[2022-10-30] MEDS: ATORVASTATIN 40 MG TABLET PO SCH (19:34)
[2022-10-30] MEDS: 0.9%NACL 50ML IV SCH (19:34)
[2022-10-30 20:00] VITALS: BP 124/84
[2022-10-31] VITALS (7 sets, daily range): BP systolic 109–122; BP diastolic 73–84
[2022-10-31] MEDS: LACTATED RINGERS 1000ML 1,000 ML IV SCH ×2 (03:49→13:10)
[2022-10-31] MEDS: 0.9%NACL 50ML IV SCH ×2 (03:49→12:49)
[2022-10-31] MEDS: ZOSYN 3.375GM+NS 50ML 50 ML IVPB SCH ×2 (03:49→12:48)
[2022-10-31 04:43] LABS: BASOPHILS % (AUTO) 0.5 % (0.0-5.0); EOSINOPHILS % (AUTO) 1.2 % (0.0-8.0); HEMATOCRIT 38.3 % (42-54); LYMPHOCYTES % (AUTO) 21.9 % (21.0-51.0); MEAN CORPUSCULAR HEMOGLOBIN 28.5 pg (27.0-33.0); MEAN CORPUSCULAR HGB CONC 32.1 g/dL (32.0-36.0); MEAN CORPUSCULAR VOLUME 88.7 fL (79-99); MONOCYTES % (AUTO) 6.7 % (3.0-13.0); NEUTROPHILS % (AUTO) 68.4 % (40.0-77.0); PLATELET COUNT (AUTO) 316 K/uL (130-400); RED BLOOD CELL COUNT(AUTO) 4.32 MIL/uL (4.50-6.20); RED CELL DISTRIBUTION WIDTH 13.2 % (11.0-15.5); WHITE BLOOD COUNT (AUTO) 9.7 K/uL (4.8-10.8)
[2022-10-31 05:02] LABS: ALBUMIN 1.2 g/dL (3.5-5.0); CREATININE 0.6 mg/dL (0.5-1.5); MAGNESIUM 1.7 mg/dL (1.80-2.40); POTASSIUM 3.8 mmol/L (3.5-5.1); TOTAL PROTEIN, SERUM 5.5 g/dL (6.0-8.3)
[2022-10-31] MEDS: CLINDAMYCIN IVPB 900MG/50ML 50 ML IV SCH ×2 (05:31→13:09)
[2022-10-31] MEDS: VANCOMYCIN 1G/250ML KIT 250 ML IV SCH (05:31)
[2022-10-31] MEDS: MAGNESIUM 2GM PREMIX 50ML 50 ML IV PRN (05:31)
[2022-10-31] MEDS: INSULIN HUMULIN R 100 UNIT/ML 3ML SQ SCH ×4 (05:38→20:28)
[2022-10-31] MEDS: NEOMY SULF/BACITRA/POLYMYXIN B 1 EACH PACKET TP SCH ×2 (09:18→20:27)
[2022-10-31] MEDS: ASPIRIN 81 MG EC TAB PO SCH (09:18)
[2022-10-31] MEDS: FAMOTIDINE 20MG VIAL IV SCH (09:18)
[2022-10-31] MEDS: ENOXAPARIN SODIUM 40 MG/0.4 ML SYRINGE SQ SCH (09:18)
[2022-10-31] MEDS: AMLODIPINE 5 MG TAB PO SCH (09:18)
[2022-10-31] MEDS ORDERED: AMOX/CLAV 875/125MG TAB PO SCH (14:00)
[2022-10-31] MEDS: ATORVASTATIN 40 MG TABLET PO SCH (20:27)
[2022-11-01] MEDS: LACTATED RINGERS 1000ML 1,000 ML IV SCH ×4 (01:30→19:32)
[2022-11-01 04:28] VITALS: BP 121/78
[2022-11-01 04:32] LABS: BASOPHILS % (AUTO) 0.4 % (0.0-5.0); EOSINOPHILS % (AUTO) 1.7 % (0.0-8.0); HEMATOCRIT 40.2 % (42-54); MEAN CORPUSCULAR HEMOGLOBIN 28.2 pg (27.0-33.0); MEAN CORPUSCULAR HGB CONC 31.6 g/dL (32.0-36.0); MEAN CORPUSCULAR VOLUME 89.1 fL (79-99); MONOCYTES % (AUTO) 7.3 % (3.0-13.0); NEUTROPHILS % (AUTO) 69.1 % (40.0-77.0); PLATELET COUNT (AUTO) 338 K/uL (130-400); RED BLOOD CELL COUNT(AUTO) 4.51 MIL/uL (4.50-6.20); RED CELL DISTRIBUTION WIDTH 13.2 % (11.0-15.5); WHITE BLOOD COUNT (AUTO) 9.6 K/uL (4.8-10.8)
[2022-11-01 04:43] LABS: ALBUMIN 1.4 g/dL (3.5-5.0); CREATININE 0.8 mg/dL (0.5-1.5); MAGNESIUM 2.1 mg/dL (1.80-2.40); TOTAL PROTEIN, SERUM 6.1 g/dL (6.0-8.3)
[2022-11-01] MEDS: INSULIN HUMULIN R 100 UNIT/ML 3ML SQ SCH ×4 (05:43→19:27)
[2022-11-01 08:00] VITALS: BP 113/75
[2022-11-01] MEDS: NEOMY SULF/BACITRA/POLYMYXIN B 1 EACH PACKET TP SCH ×2 (09:00→19:27)
[2022-11-01] MEDS: ASPIRIN 81 MG EC TAB PO SCH (10:43)
[2022-11-01] MEDS: FAMOTIDINE 20MG VIAL IV SCH (10:44)
[2022-11-01] MEDS: ENOXAPARIN SODIUM 40 MG/0.4 ML SYRINGE SQ SCH (10:44)
[2022-11-01] MEDS: AMOX/CLAV 875/125MG TAB PO SCH ×2 (10:44→19:26)
[2022-11-01] MEDS: AMLODIPINE 5 MG TAB PO SCH (10:44)
[2022-11-01 12:00] VITALS: BP 131/81
[2022-11-01] MEDS ORDERED: AMOX1TAB16 PO (12:14)
[2022-11-01] MEDS: ONDANSETRON 4MG INJ IVP PRN (14:50)
[2022-11-01 16:00] VITALS: BP 115/74
[2022-11-01] MEDS: ATORVASTATIN 40 MG TABLET PO SCH (19:26)
[2022-11-01 19:50] VITALS: BP 117/76
[2022-11-01 22:58] VITALS: BP 112/82
[2022-11-02 04:44] VITALS: BP 136/80
[2022-11-02] MEDS: INSULIN HUMULIN R 100 UNIT/ML 3ML SQ SCH ×4 (06:22→20:50)
[2022-11-02 08:00] VITALS: BP 123/89
[2022-11-02] MEDS: NEOMY SULF/BACITRA/POLYMYXIN B 1 EACH PACKET TP SCH ×2 (09:48→19:44)
[2022-11-02] MEDS: AMOX/CLAV 875/125MG TAB PO SCH ×2 (09:48→19:44)
[2022-11-02] MEDS: FAMOTIDINE 20MG VIAL IV SCH (09:48)
[2022-11-02] MEDS: AMLODIPINE 5 MG TAB PO SCH (09:48)
[2022-11-02] MEDS: ASPIRIN 81 MG EC TAB PO SCH (09:48)
[2022-11-02] MEDS: ENOXAPARIN SODIUM 40 MG/0.4 ML SYRINGE SQ SCH (09:49)
[2022-11-02 12:00] VITALS: BP 139/71
[2022-11-02 16:00] VITALS: BP 127/86
[2022-11-02] MEDS: LACTATED RINGERS 1000ML 1,000 ML IV SCH (17:30)
[2022-11-02] MEDS: ATORVASTATIN 40 MG TABLET PO SCH (19:44)
[2022-11-02 19:56] VITALS: BP 125/82
[2022-11-02 23:14] VITALS: BP 138/83
[2022-11-03] MEDS: LACTATED RINGERS 1000ML 1,000 ML IV SCH ×3 (03:50→20:57)
[2022-11-03 04:04] VITALS: BP 136/88
[2022-11-03 04:46] LABS: BASOPHILS % (AUTO) 0.4 % (0.0-5.0); EOSINOPHILS % (AUTO) 1.6 % (0.0-8.0); HEMATOCRIT 42.4 % (42-54); LYMPHOCYTES % (AUTO) 17.7 % (21.0-51.0); MEAN CORPUSCULAR HEMOGLOBIN 28.2 pg (27.0-33.0); MEAN CORPUSCULAR HGB CONC 31.4 g/dL (32.0-36.0); MEAN CORPUSCULAR VOLUME 89.8 fL (79-99); MONOCYTES % (AUTO) 9.4 % (3.0-13.0); PLATELET COUNT (AUTO) 370 K/uL (130-400); RED BLOOD CELL COUNT(AUTO) 4.72 MIL/uL (4.50-6.20); RED CELL DISTRIBUTION WIDTH 13.3 % (11.0-15.5); WHITE BLOOD COUNT (AUTO) 9.2 K/uL (4.8-10.8)
[2022-11-03 05:02] LABS: ALBUMIN 1.6 g/dL (3.5-5.0); CREATININE 0.6 mg/dL (0.5-1.5); MAGNESIUM 2.2 mg/dL (1.80-2.40); POTASSIUM 4.2 mmol/L (3.5-5.1); TOTAL PROTEIN, SERUM 7.1 g/dL (6.0-8.3)
[2022-11-03] MEDS: INSULIN HUMULIN R 100 UNIT/ML 3ML SQ SCH ×4 (05:47→20:53)
[2022-11-03 08:00] VITALS: BP 119/81
[2022-11-03] MEDS: FAMOTIDINE 20MG VIAL IV SCH (08:59)
[2022-11-03] MEDS: AMOX/CLAV 875/125MG TAB PO SCH ×2 (08:59→20:52)
[2022-11-03] MEDS: ENOXAPARIN SODIUM 40 MG/0.4 ML SYRINGE SQ SCH (08:59)
[2022-11-03] MEDS: ASPIRIN 81 MG EC TAB PO SCH (08:59)
[2022-11-03] MEDS: AMLODIPINE 5 MG TAB PO SCH (09:00)
[2022-11-03] MEDS: NEOMY SULF/BACITRA/POLYMYXIN B 1 EACH PACKET TP SCH ×2 (11:44→20:53)
[2022-11-03 11:48] VITALS: BP 146/90
[2022-11-03 15:49] VITALS: BP 124/88
[2022-11-03 20:00] VITALS: BP 132/88
[2022-11-03] MEDS: ATORVASTATIN 40 MG TABLET PO SCH (20:52)
[2022-11-04] VITALS: BP 130/88
[2022-11-04 04:00] VITALS: BP 133/85
[2022-11-04] MEDS: INSULIN HUMULIN R 100 UNIT/ML 3ML SQ SCH (06:29)
[2022-11-04 08:00] VITALS: BP 128/85
[2022-11-04] MEDS: ENOXAPARIN SODIUM 40 MG/0.4 ML SYRINGE SQ SCH (09:48)
[2022-11-04] MEDS: AMLODIPINE 5 MG TAB PO SCH (09:48)
[2022-11-04] MEDS: FAMOTIDINE 20MG VIAL IV SCH (09:48)
[2022-11-04] MEDS: ASPIRIN 81 MG EC TAB PO SCH (09:48)
[2022-11-04] MEDS: AMOX/CLAV 875/125MG TAB PO SCH (09:49)
[2022-11-04] MEDS: NEOMY SULF/BACITRA/POLYMYXIN B 1 EACH PACKET TP SCH (09:55)
== END 2022-11-04 11:55 | disposition home or self-care (01) | DRG 853 ==
LOC: EDH 17:04 → UNDOADMIN 17:05 → EDHIP 17:05 → 2AH 10-27 14:25 → 2DH 10-28 00:03 → 4AH 10-30 13:35
PROVIDERS: ADMIT Internal Medicine; ATTEND Internal Medicine
PROC: 0JBB0ZZ Excision of Perineum Subcutaneous Tissue and Fascia, Open Approach (ICD-10-PCS; principal; 2022-10-27 17:57)
DX: A41.9 Sepsis, unspecified organism (principal); E43 Unspecified severe protein-calorie malnutrition; N17.0 Acute kidney failure with tubular necrosis; M72.6 Necrotizing fasciitis; E87.1 Hypo-osmolality and hyponatremia; E11.52 Type 2 diabetes mellitus with diabetic peripheral angiopathy with gangrene; N39.0 Urinary tract infection, site not specified; Z20.822 Contact with and (suspected) exposure to COVID-19; L08.9 Local infection of the skin and subcutaneous tissue, unspecified; E11.9 Type 2 diabetes mellitus without complications; E87.6 Hypokalemia; R32 Unspecified urinary incontinence; N49.2 Inflammatory disorders of scrotum; N47.1 Phimosis; N50.89 Other specified disorders of the male genital organs; A41.50 Gram-negative sepsis, unspecified; R65.20 Severe sepsis without septic shock; N49.3 Fournier gangrene; E78.00 Pure hypercholesterolemia, unspecified; E86.0 Dehydration; I10 Essential (primary) hypertension; L90.0 Lichen sclerosus et atrophicus; N35.911 Unspecified urethral stricture, male, meatal; Z86.73 Personal history of transient ischemic attack (TIA), and cerebral infarction without residual deficits; Z87.891 Personal history of nicotine dependence; Z91.199 Patient's noncompliance with other medical treatment and regimen due to unspecified reason; Z68.21 Body mass index [BMI] 21.0-21.9, adult
CPT/HCPCS: 36415; 71045; 74176; 80053; 80202; 81001; 82150; 82270; 82550; 82948; 83036; 83605; 83690; 83735; 83880; 84484; 85007; 85025; 85610; 85651; 85730; 86140; 86850; 86900; 86901; 87040; 87070; 87076; 87088; 87635; 87804; 87880; 93005; A4344; C9803; G0378; J0330; J0690; J1100; J1650; J1815; J2001; J2250; J2405; J2543; J2704; J2710; J3010; J3370; J3475; J3480; J3490; J7030; J7120

== ENCOUNTER → 2022-11-06 | Outpatient (CLI) | payer OTHER ==
[~2022-11-06] MED LIST changes: +AMOX1TAB16 PO; +DAPA5TAB PO; +EZET10TA48 PO; +SEMA14TA2 PO; +TAMS-1 PO
== END | disposition home or self-care (01) ==
LOC: WHH 13:47
PROVIDERS: ATTEND Nurse Practitioner Family
DX: N45.4 Abscess of epididymis or testis (principal); S31.30XA Unspecified open wound of scrotum and testes, initial encounter; E11.52 Type 2 diabetes mellitus with diabetic peripheral angiopathy with gangrene; I96 Gangrene, not elsewhere classified; I10 Essential (primary) hypertension; E78.5 Hyperlipidemia, unspecified; N40.0 Benign prostatic hyperplasia without lower urinary tract symptoms; Z86.73 Personal history of transient ischemic attack (TIA), and cerebral infarction without residual deficits; X58.XXXA Exposure to other specified factors, initial encounter; Y99.8 Other external cause status; Z87.891 Personal history of nicotine dependence; Y93.89 Activity, other specified; Y92.89 Other specified places as the place of occurrence of the external cause
CPT/HCPCS: 97605

== ENCOUNTER → 2022-11-10 | Outpatient (CLI) | payer OTHER ==
[~2022-11-10] MED LIST changes: +LIDOCAINE HCL 4% LTA SOL 4 ML VIAL TP ONE
== END | disposition home or self-care (01) ==
LOC: WHH 13:51
PROVIDERS: ATTEND Nurse Practitioner Family
DX: N45.4 Abscess of epididymis or testis (principal); S31.30XD Unspecified open wound of scrotum and testes, subsequent encounter; E11.52 Type 2 diabetes mellitus with diabetic peripheral angiopathy with gangrene; I96 Gangrene, not elsewhere classified; I10 Essential (primary) hypertension; E78.5 Hyperlipidemia, unspecified; N40.0 Benign prostatic hyperplasia without lower urinary tract symptoms; Z87.891 Personal history of nicotine dependence; Z86.73 Personal history of transient ischemic attack (TIA), and cerebral infarction without residual deficits; X58.XXXD Exposure to other specified factors, subsequent encounter
CPT/HCPCS: 11042; 11045; 97605

== ENCOUNTER → 2022-11-13 | Outpatient (CLI) | payer OTHER ==
[~2022-11-13] MED LIST changes: -LIDOCAINE HCL 4% LTA SOL 4 ML VIAL TP ONE
== END | disposition home or self-care (01) ==
LOC: WHH 08:18
PROVIDERS: ATTEND Nurse Practitioner Family
DX: N45.4 Abscess of epididymis or testis (principal); S31.30XD Unspecified open wound of scrotum and testes, subsequent encounter; E11.52 Type 2 diabetes mellitus with diabetic peripheral angiopathy with gangrene; I96 Gangrene, not elsewhere classified; I10 Essential (primary) hypertension; E78.5 Hyperlipidemia, unspecified; N40.0 Benign prostatic hyperplasia without lower urinary tract symptoms; Z87.891 Personal history of nicotine dependence; Z86.73 Personal history of transient ischemic attack (TIA), and cerebral infarction without residual deficits; X58.XXXD Exposure to other specified factors, subsequent encounter
CPT/HCPCS: 99211; A6209; A4450; 99214

== ENCOUNTER → 2022-11-18 | Outpatient (CLI) | payer OTHER | END | disposition home or self-care (01) | LOC: WHH 13:38 | PROVIDERS: ATTEND Nurse Practitioner Family | DX: T81.89XA Other complications of procedures, not elsewhere classified, initial encounter (principal); N45.4 Abscess of epididymis or testis; S31.30XD Unspecified open wound of scrotum and testes, subsequent encounter; E11.52 Type 2 diabetes mellitus with diabetic peripheral angiopathy with gangrene; I96 Gangrene, not elsewhere classified; I10 Essential (primary) hypertension; E78.5 Hyperlipidemia, unspecified; E78.00 Pure hypercholesterolemia, unspecified; N40.0 Benign prostatic hyperplasia without lower urinary tract symptoms; Z87.891 Personal history of nicotine dependence; Z86.73 Personal history of transient ischemic attack (TIA), and cerebral infarction without residual deficits; X58.XXXD Exposure to other specified factors, subsequent encounter; Y83.8 Other surgical procedures as the cause of abnormal reaction of the patient, or of later complication, without mention of misadventure at the time of the procedure; Y92.238 Other place in hospital as the place of occurrence of the external cause | CPT/HCPCS: 99211; A6021; A6209 ×2 ==

== ENCOUNTER → 2022-11-20 | Outpatient (CLI) | payer OTHER | END | disposition home or self-care (01) | LOC: WHH 13:29 | PROVIDERS: ATTEND Nurse Practitioner Family | DX: T81.89XA Other complications of procedures, not elsewhere classified, initial encounter (principal); N45.4 Abscess of epididymis or testis; S31.30XD Unspecified open wound of scrotum and testes, subsequent encounter; E11.52 Type 2 diabetes mellitus with diabetic peripheral angiopathy with gangrene; I96 Gangrene, not elsewhere classified; I10 Essential (primary) hypertension; E78.5 Hyperlipidemia, unspecified; N40.0 Benign prostatic hyperplasia without lower urinary tract symptoms; Z87.891 Personal history of nicotine dependence; Z86.73 Personal history of transient ischemic attack (TIA), and cerebral infarction without residual deficits; X58.XXXD Exposure to other specified factors, subsequent encounter; Y83.8 Other surgical procedures as the cause of abnormal reaction of the patient, or of later complication, without mention of misadventure at the time of the procedure; Y92.238 Other place in hospital as the place of occurrence of the external cause | CPT/HCPCS: 97605 ==

== ENCOUNTER → 2022-11-24 | Outpatient (CLI) | payer OTHER | END | disposition home or self-care (01) | LOC: WHH 11:00 | PROVIDERS: ATTEND Nurse Practitioner Family | DX: T81.89XD Other complications of procedures, not elsewhere classified, subsequent encounter (principal); N45.4 Abscess of epididymis or testis; S31.30XD Unspecified open wound of scrotum and testes, subsequent encounter; E11.52 Type 2 diabetes mellitus with diabetic peripheral angiopathy with gangrene; I96 Gangrene, not elsewhere classified; I10 Essential (primary) hypertension; E78.5 Hyperlipidemia, unspecified; N40.0 Benign prostatic hyperplasia without lower urinary tract symptoms; Z87.891 Personal history of nicotine dependence; Z86.73 Personal history of transient ischemic attack (TIA), and cerebral infarction without residual deficits; X58.XXXD Exposure to other specified factors, subsequent encounter; Y83.8 Other surgical procedures as the cause of abnormal reaction of the patient, or of later complication, without mention of misadventure at the time of the procedure | CPT/HCPCS: 97605; A4450; 99211 ==

== ENCOUNTER → 2022-11-27 | Outpatient (CLI) | payer OTHER ==
[~2022-11-27] MED LIST changes: +LIDOCAINE HCL 4% LTA SOL 4 ML VIAL TP ONE
== END | disposition home or self-care (01) ==
LOC: WHH 10:42
PROVIDERS: ATTEND Nurse Practitioner Family
DX: T81.89XD Other complications of procedures, not elsewhere classified, subsequent encounter (principal); N45.4 Abscess of epididymis or testis; S31.30XD Unspecified open wound of scrotum and testes, subsequent encounter; S31.20XD Unspecified open wound of penis, subsequent encounter; E11.52 Type 2 diabetes mellitus with diabetic peripheral angiopathy with gangrene; I96 Gangrene, not elsewhere classified; I10 Essential (primary) hypertension; E78.5 Hyperlipidemia, unspecified; N40.0 Benign prostatic hyperplasia without lower urinary tract symptoms; Z87.891 Personal history of nicotine dependence; Z86.73 Personal history of transient ischemic attack (TIA), and cerebral infarction without residual deficits; X58.XXXD Exposure to other specified factors, subsequent encounter; Y83.8 Other surgical procedures as the cause of abnormal reaction of the patient, or of later complication, without mention of misadventure at the time of the procedure
CPT/HCPCS: 97605

== ENCOUNTER → 2022-11-28 | Emergency (ER) | payer OTHER ==
[~2022-11-28] VITALS: Ht 167.6 cm; Wt 66.7 kg
[~2022-11-28] MED LIST changes: -LIDOCAINE HCL 4% LTA SOL 4 ML VIAL TP ONE
[2022-11-28 10:23] VITALS: BP 111/71
== END ==
LOC: EDH 10:22
DX: Z44.8 Encounter for fitting and adjustment of other external prosthetic devices (principal); I10 Essential (primary) hypertension; E11.9 Type 2 diabetes mellitus without complications; E78.00 Pure hypercholesterolemia, unspecified; Z79.82 Long term (current) use of aspirin; Z79.84 Long term (current) use of oral hypoglycemic drugs; Z79.899 Other long term (current) drug therapy; Z98.890 Other specified postprocedural states
CPT/HCPCS: 99281

== ENCOUNTER → 2022-12-01 | Outpatient (CLI) | payer OTHER | END | disposition home or self-care (01) | LOC: WHH 10:39 | PROVIDERS: ATTEND Nurse Practitioner Family | DX: T81.89XD Other complications of procedures, not elsewhere classified, subsequent encounter (principal); N45.4 Abscess of epididymis or testis; S31.30XD Unspecified open wound of scrotum and testes, subsequent encounter; E11.52 Type 2 diabetes mellitus with diabetic peripheral angiopathy with gangrene; I96 Gangrene, not elsewhere classified; I10 Essential (primary) hypertension; E78.5 Hyperlipidemia, unspecified; N40.0 Benign prostatic hyperplasia without lower urinary tract symptoms; Z87.891 Personal history of nicotine dependence; Z86.73 Personal history of transient ischemic attack (TIA), and cerebral infarction without residual deficits; X58.XXXD Exposure to other specified factors, subsequent encounter; Y83.8 Other surgical procedures as the cause of abnormal reaction of the patient, or of later complication, without mention of misadventure at the time of the procedure | CPT/HCPCS: 99211; A6209; G0463 ==

== ENCOUNTER → 2022-12-04 | Outpatient (CLI) | payer OTHER | END | disposition home or self-care (01) | LOC: WHH 13:04 | PROVIDERS: ATTEND Nurse Practitioner Family | DX: T81.89XD Other complications of procedures, not elsewhere classified, subsequent encounter (principal); N45.4 Abscess of epididymis or testis; S31.20XD Unspecified open wound of penis, subsequent encounter; S31.30XD Unspecified open wound of scrotum and testes, subsequent encounter; E11.52 Type 2 diabetes mellitus with diabetic peripheral angiopathy with gangrene; I96 Gangrene, not elsewhere classified; I10 Essential (primary) hypertension; E78.5 Hyperlipidemia, unspecified; N40.0 Benign prostatic hyperplasia without lower urinary tract symptoms; Z87.891 Personal history of nicotine dependence; Z86.73 Personal history of transient ischemic attack (TIA), and cerebral infarction without residual deficits; X58.XXXD Exposure to other specified factors, subsequent encounter; Y83.8 Other surgical procedures as the cause of abnormal reaction of the patient, or of later complication, without mention of misadventure at the time of the procedure | CPT/HCPCS: 99214; A6209 ==

== ENCOUNTER → 2022-12-11 | Outpatient (CLI) | payer OTHER ==
[~2022-12-11] MED LIST changes: +LIDOCAINE HCL 4% LTA SOL 4 ML VIAL TP ONE
== END | disposition home or self-care (01) ==
LOC: WHH 08:05
PROVIDERS: ATTEND Nurse Practitioner Family
DX: T81.89XD Other complications of procedures, not elsewhere classified, subsequent encounter (principal); N45.4 Abscess of epididymis or testis; S31.30XD Unspecified open wound of scrotum and testes, subsequent encounter; S31.20XD Unspecified open wound of penis, subsequent encounter; E11.52 Type 2 diabetes mellitus with diabetic peripheral angiopathy with gangrene; I96 Gangrene, not elsewhere classified; I10 Essential (primary) hypertension; E78.5 Hyperlipidemia, unspecified; N40.0 Benign prostatic hyperplasia without lower urinary tract symptoms; Z87.891 Personal history of nicotine dependence; Z86.73 Personal history of transient ischemic attack (TIA), and cerebral infarction without residual deficits; X58.XXXD Exposure to other specified factors, subsequent encounter; Y83.8 Other surgical procedures as the cause of abnormal reaction of the patient, or of later complication, without mention of misadventure at the time of the procedure
CPT/HCPCS: 99214; A6248

== ENCOUNTER → 2023-01-08 | Outpatient (CLI) | payer OTHER | END | disposition home or self-care (01) | LOC: WHH 08:19 | PROVIDERS: ATTEND Nurse Practitioner Family | DX: S31.30XD Unspecified open wound of scrotum and testes, subsequent encounter (principal); S31.20XD Unspecified open wound of penis, subsequent encounter; N45.4 Abscess of epididymis or testis; E11.622 Type 2 diabetes mellitus with other skin ulcer; L98.492 Non-pressure chronic ulcer of skin of other sites with fat layer exposed; N40.0 Benign prostatic hyperplasia without lower urinary tract symptoms; I10 Essential (primary) hypertension; E11.52 Type 2 diabetes mellitus with diabetic peripheral angiopathy with gangrene; I96 Gangrene, not elsewhere classified; E78.00 Pure hypercholesterolemia, unspecified; Z86.73 Personal history of transient ischemic attack (TIA), and cerebral infarction without residual deficits; Z87.891 Personal history of nicotine dependence; Z79.82 Long term (current) use of aspirin; Z79.84 Long term (current) use of oral hypoglycemic drugs; Z79.899 Other long term (current) drug therapy; X58.XXXD Exposure to other specified factors, subsequent encounter | CPT/HCPCS: 99214; A6248 ==

== ENCOUNTER → 2023-01-22 | Outpatient (CLI) | payer OTHER ==
[~2023-01-22] MED LIST changes: -LIDOCAINE HCL 4% LTA SOL 4 ML VIAL TP ONE
== END | disposition home or self-care (01) ==
LOC: WHH 08:38
PROVIDERS: ATTEND Nurse Practitioner Family
DX: N45.4 Abscess of epididymis or testis (principal); S31.30XD Unspecified open wound of scrotum and testes, subsequent encounter; S31.20XD Unspecified open wound of penis, subsequent encounter; E11.52 Type 2 diabetes mellitus with diabetic peripheral angiopathy with gangrene; I96 Gangrene, not elsewhere classified; I10 Essential (primary) hypertension; N40.0 Benign prostatic hyperplasia without lower urinary tract symptoms; E78.00 Pure hypercholesterolemia, unspecified; Z86.73 Personal history of transient ischemic attack (TIA), and cerebral infarction without residual deficits; Z87.891 Personal history of nicotine dependence; Z79.82 Long term (current) use of aspirin; Z79.84 Long term (current) use of oral hypoglycemic drugs; Z79.899 Other long term (current) drug therapy; X58.XXXD Exposure to other specified factors, subsequent encounter
CPT/HCPCS: 99214; A6209; A4450

== ENCOUNTER → 2023-01-29 | Outpatient (CLI) | payer OTHER | END | disposition home or self-care (01) | LOC: WHH 08:22 | PROVIDERS: ATTEND Nurse Practitioner Family | DX: N45.4 Abscess of epididymis or testis (principal); S31.30XD Unspecified open wound of scrotum and testes, subsequent encounter; S31.20XD Unspecified open wound of penis, subsequent encounter; E11.52 Type 2 diabetes mellitus with diabetic peripheral angiopathy with gangrene; I96 Gangrene, not elsewhere classified; I10 Essential (primary) hypertension; N40.0 Benign prostatic hyperplasia without lower urinary tract symptoms; E78.00 Pure hypercholesterolemia, unspecified; Z86.73 Personal history of transient ischemic attack (TIA), and cerebral infarction without residual deficits; Z87.891 Personal history of nicotine dependence; Z79.82 Long term (current) use of aspirin; Z79.84 Long term (current) use of oral hypoglycemic drugs; Z79.899 Other long term (current) drug therapy; X58.XXXD Exposure to other specified factors, subsequent encounter | CPT/HCPCS: 99214 ==